=== PATIENT | female | born 1955 | race Caucasian/White ===

== ENCOUNTER 2022-01-02 08:30 | Outpatient (RCR) | payer BC, SELFPAY | END 2022-10-23 23:59 | disposition home or self-care (01) | PROVIDERS: PCP Family Medicine; Visit Provider Family Medicine | DX: M65.30 Trigger finger, unspecified finger (principal); Z51.89 Encounter for other specified aftercare | CPT/HCPCS: 97016; 97033; 97035; 97110; 97140; 97165; X5282 ==

== ENCOUNTER 2022-04-28 09:46 | Outpatient (CLI) | payer BC, SELFPAY ==
--- NOTE | 2022-04-28 10:15 | CRLHL7_ITS ---
For Patients: As a result of the Cures Act, medical imaging exams and procedure reports are released immediately into your electronic medical record. You may view this report before your referring provider. If you have questions, please contact your health care provider. BILATERAL SCREENING MAMMOGRAM WITH COMPUTER-AIDED DETECTION AND TOMOSYNTHESIS TECHNIQUE: CC and MLO views were obtained. These mammographic images have been obtained using full-field digital technique. These mammographic images were interpreted with the benefit of computer-aided detection. Breast Tomosynthesis was used in this interpretation. COMPARISON FILM: 03/25/21, 01/06/20, 11/10/18. FINDINGS: There are scattered areas of fibroglandular density IMPRESSION: There is no radiographic evidence for malignancy. ASSESSMENT: BI-RADS Category 1: Negative RECOMMENDATION: Routine screening mammogram in 1 year. A lay language report of this examination will be provided to the patient. SANTOS VILLEGAS M.D. Diagnostic/Nuclear Medicine Radiologist [email or web address] [email or web address]:alis Transcribed: 3:13 p.mNereida snell/Dictated by: Santos Villegas MD @ 04/28/2022 10:57:00 AM (Electronically Signed)
== END 2022-04-28 09:47 | disposition home or self-care (01) ==
LOC: MAMMO 09:46
PROVIDERS: PCP Family Medicine; Visit Provider Family Medicine
DX: Z12.31 Encounter for screening mammogram for malignant neoplasm of breast (principal)
CPT/HCPCS: 77063; 77067

== ENCOUNTER 2022-06-03 09:29 | Outpatient (CLI) | payer BC, SELFPAY ==
[2022-06-03 11:50] LABS: Albumin* 4.3 g/dL (3.3-5.0); Chloride* 105 mmol/L (96-114); Potassium* 4.8 mmol/L (3.6-5.1); Sodium* 140 mmol/L (135-149)
[2022-06-03 11:52] LABS: Cholesterol* 215 mg/dL (90-199)
[2022-06-03 11:53] LABS: Alanine Aminotransferase* 25 U/L (4-35); Alkaline Phosphatase* 76 U/L (40-150); Aspartate Amino Transferase* 23 U/L (12-35); Bilirubin Total* 0.5 mg/dL (0.1-1.5); Blood Urea Nitrogen* 15 mg/dL (7-30); Calcium* 9.2 mg/dL (8.4-10.6); Carbon Dioxide* 31 mmol/L (20-32); Creatinine* 0.6 mg/dL (0.5-1.5); Estimated Glomerular Filt Rate 100 ml/min; Glucose* 101 mg/dL (60-115); HDL Cholesterol* 78 mg/dL (>=50); LDL Cholesterol Calculated 104 mg/dL (<100); Total Protein* 6.9 g/dL (6.0-8.3); Triglycerides* 164 mg/dL (40-149)
[2022-06-05 10:33] LABS: Vitamin D 25 Hydroxy* 48 ng/mL (30-80)
== END 2022-06-03 09:30 | disposition home or self-care (01) ==
LOC: NFLDREF 09:29
PROVIDERS: PCP Family Medicine; Visit Provider Family Medicine
DX: E78.5 Hyperlipidemia, unspecified (principal); Z00.00 Encounter for general adult medical examination without abnormal findings; E55.9 Vitamin D deficiency, unspecified; E66.9 Obesity, unspecified
CPT/HCPCS: 80053; 80061; 82306

== ENCOUNTER 2023-07-20 13:34 | Outpatient (CLI) | payer BC, SELFPAY ==
--- OUTSIDE RECORDS SUMMARY | 2023-07-20 13:36 | XMS_ITS | Clinical Summary ---
Author Name Unknown Organization [employer] [facility] Address [place], [place] [address] Care Team Providers Care Acquisition Professional Name Role Phone Donna Proctor Teodora DC Unavailable [phone] Pcp, No Primary Care Provider Unavailabl e Allergies Active Allergy Reactions Criticality Noted Date Comments Codeine 11/14/2008 Pt wasn't able to walk Medications Medication Sig Dispensed Refills Start Date End Date Status multivitamin (MVI) tablet Take 1 tablet by mouth once daily. 0 11/16/2009 Active glucosamine-chondroiti n, 500-400 mg, (COSAMIN DS 500/400) 500-400 mg Cap Take 1 capsule by mouth 3 times daily. 0 11/16/2009 Active aspirin enteric coated 81 mg tablet Take 1 tablet by mouth once daily with a meal. 0 11/16/2009 Active calcium-cholecalcifero l, vitamin D, 500 mg-200 units (CALCIUM 500+D) 500 mg(1,250mg) -200 unit tablet Take 1 tablet by mouth 3 times daily with meals. 0 11/16/2009 Active Coenzyme H58-Zfljtpj E (COQ10 SG 100) 100-100 mg-unit cap Take 1 capsule by mouth once daily. 0 02/19/2012 Active omega-3 fatty acids-vitamin E (FISH OIL) 1,000 mg cap Take 1 capsule by mouth once daily. 0 02/19/2012 Active vitamin B complex (B COMPLEX-VITAMIN B12) tablet Take 1 tablet by mouth once daily. 0 02/19/2012 Active fexofenadine (LINH) 180 mg tablet Take 1 tablet by mouth once daily with a meal. 0 05/11/2014 Active simvastatin (ZOCOR) 20 mg tabletIndications:Mixe d hyperlipidemia Take 1 tablet by mouth at bedtime. 90 tablet 3 11/24/2017 Active RABEprazole (ACIPHEX) 20 mg tabletIndications:Rajni roesophageal reflux disease, esophagitis presence not specified Take 1 tablet by mouth once daily. 90 tablet 3 11/24/2017 Active venlafaxine (EFFEXOR XR) 150 mg Extended-Release capsuleIndications:Anx iety state TAKE 1 CAPSULE BY MOUTH DAILY 30 capsule 11/12/2018 Active Active Problems Problem Noted Date Diagnosed Date Mixed hyperlipidemia 02/19/2012 GERD (gastroesophageal reflux disease) 0 Overview: EGD 06/2014 mild reflux esophagitis Anxiety state, unspecified 11/14/2008 Resolved Problems Problem Noted Date Diagnosed Date Resolved Date Health maintenance examination 11/16/2009 08/01/2014 Overview: Colonscopy 08/04/2008 repeat 5 yrs Pap 07/2008 Colonoscopy 06/2014 normal repeat in 5 years Other and unspecified hyperlipidemia 11/14/2008 08/01/2014 Immunizations Name Administration Dates Next Due COVID-19 vaccine (Moderna Siddhartha ele 50mcg/0.25mL) PF, MDV 02/18/2021 COVID-19 vaccine (Pfizer-BioNTech 30mcg/0.3mL) P F, MDV 07/20/2020,06/22/2020 Influenza, IIV4 01/07/2018 Td (Age >=7 Years) 12/05/2002 Tdap 02/19/2012 Family History Medical History Relation Name Comments Good Health Daughter Cancer Father stomach Diabetes Father Heart Disease Father angioplasty no [place] Other Father COPD Cancer-breast Maternal Aunt Cancer Mother uterine/myeolop lastic leukemia Cancer-breast Mother matastatic Diabetes Mother Cancer-breast Paternal Aunt Cancer-breast Paternal Grandmother Cancer-breast Sister 1 #1 Cancer-breast Sister 2 #2 Good Health Sister 2 #2 Good Health Sister 3 #3 Good Health Son 1 Good Health Son 2 Relation Name Status Comments Daughter Father (Age 75) gastric ca ncer Maternal Aunt Mother Alive Paternal Aunt Paternal Grandmother breast cancer Sister 1 #1 Sister 2 #2 Sister 3 #3 Son 1 Son 2 Social History Tobacco Use Types Packs/Day Years Used Date Smoking Tobacco: Former Cigarettes Q uit: 04/06/2002 Smokeless Tobacco: Never Tobacco Cessation:Counseling Given: Yes Alcohol Use Standard Drinks/Week Comments Yes 3 (1 standard drink = 0.6 oz pure alcohol) occasional, a couple times/ weekend PHQ-2 Answer Date Recorded PHQ-2 Score 0 06/08/2018 Social Connections Answer Date Recorded Frequency of Communication with Friends and Fami ly Not on file 07/01/2021 Sex and Gender Information Value Date Recorded Sex Assigned at Not on file Gender Identity Not on file Sexual Orientation Not on file Obstetrics History Para Term AB IAB SAB Ectopic Multiple Livin g Live Births 3 3 3 Date Outcome GA Total Labor Labor//3rd Weight Sex Delivery Anes PTL Svetlana A1 A5 Name Cl in Para Para Para Last Filed Vital Signs Vital Sign Reading Time Taken Comments Blood Pressure 108/72 04/09/2018 7:44 AM ORACLE EBS DEVELOPER Pulse 81 04/09/2018 7:44 AM ORACLE EBS DEVELOPER Temperature 36.9 ??C (98.4 ??F) 04/09/2018 7:44 AM CS T Respiratory Rate - - Oxygen Saturation 97% 04/09/2018 7:44 AM ORACLE EBS DEVELOPER Inhaled Oxygen Concentration - - Weight 77.6 kg (171 lb) 02/17/2018 11:09 AM ORACLE EBS DEVELOPER Height 157 cm (5' 1.81) 12/31/2017 8:25 AM CDT Body Mass Index 31.47 12/31/2017 8:25 AM CDT Plan of Treatment Health Maintenance Due Date Last Done Comments Hepatitis C screening for ag e 18-79 1974 Zoster (shingles) series for age 50+ (1 of 2) 2006 Depression screening for age 12+ 09/03/2018 09/03/2017, 08/05/2016, 08/29/2015 Mammogram for age 45-75 11/10/2018 11/11/19 18, 09/02/2016, 08/29/2015, Additional history exists BMI (ht and wt on same day) for age 18+ 12/31/2018 12/31/2017, 12/30/2017, 11/24/2017, Additional history exists Colonoscopy through age 75 06/14/2019 06/13/2014, DEXA/DXA scan for age 65+ 2021 08/30/2015 Pneumococcal series for age 65+ (1 of 1 - PCV) 2021 Tetanus booster 02/18/2022 02/19/2012, 12/05/2002 Lipids for age 45-75 11/26/2022 11/26/2017, 09/02/2016, 08/29/2015, Additional history exists COVID-19 vaccine series (2022- season) 2022 02/18/2021, 07/20/2020, 06/22/2020 Influenza for age 65+ 12/06/2023 01/07/2018 Tdap Completed 02/19/2012 Procedures Procedure Name Priority Date/Time Associated Diagnosis Comments LIPID PANEL W REFLEX MEASURED LDL Routine 11/26/2017 9:00 AM CDT Mixed hyperlipidemia XR MAMMO BILAT SCREENING Routine 11/10/2017 11:27 AM CDT Visit for screening mammogram XR DXA BONE DENSITY 2 SITES AXIAL Routine 08/30/2015 10:27 AM CDT Screening for osteoporosis from Last 3 Months or Most Recently Relevant to Health Maintenance Results * (ABNORMAL) LIPID PANEL W REFLEX MEASURED LDL (11/26/2017 9:00 AM CDT) CHOLESTEROL,TOTAL 229(H) 100 - 199 mg/dL 11/26/2017 3:48 PM CDT [facility] TRIGLYCERIDES 95 <150 mg/dL 11/26/2017 3:48 PM CDT [facility] HDL CHOLESTEROL 70 >40 mg/dL 8 3:48 PM CDT [facility] NON-HDL CHOLESTEROL 159(H) <145 mg/dl 11/26/2017 3:48 PM CDT [facility] CHOL/HDL RATIO 3.27 <4.50 11/26/2017 3:48 PM CDT [facility] LDL CHOLESTEROL 140(H) <=130 mg/dL 11/26/2017 3:48 PM CDT [facility] PROVIDER ORDERED STATUS RANDOM 11/26/2017 3:48 PM CDT [facility] Blood BLOOD SPECIMEN / Unknown Venipuncture / Unknown 11/26/2017 9:00 AM CDT 11/26/2017 9:00 AM CDT Amber Hollingsworth NP CHEMISTRY [facility] [address] [place] [address], * XR MAMMO BILAT SCREENING (11/10/2017 11:27 AM CDT) Anatomical Region Laterality Modality BREASTS, Breast Left, Breast Right Bilateral Mammography Impressions 11/10/2017 12:42 PM CDT ??There is no radiographic evidence for malignancy. ??Recommend annual mammograms. A lay language report of this examination will be provided to the patient. MAMMOGRAM ASSESSMENT: ??ACR 1 Negative Narrative 11/10/2017 12:42 PM CDT XR MAMMO BILAT SCREENING [[id number]] CLINICAL HISTORY: ??This is an asymptomatic 62 y.o. patient. INDICATION FOR EXAM: Mammogram Screening. TECHNIQUE: CC & MLO views were obtained. ??This digital study was evaluated with the assistance of Computer-Aided Detection. COMPARISON FILM: Yes 09/02/16 [facility] 08/29/15 [facility] FINDINGS: ??Mammographically, the breast tissue is heterogeneously dense, which could obscure detection of small masses. There are no dominant masses, suspicious micro calcifications or areas of architectural distortion. Amber Hollingsworth NP MAMMO * (ABNORMAL) XR DXA BONE DENSITY 2 SITES AXIAL (08/30/2015 10:27 AM CDT) Anatomical Region Laterality Modality Spine, HIPS, HIPL, HIPR Other Narrative 09/07/2015 2:46 PM CDT Please see scanned document for results of this study. Amber Hollingsworth NP DEXA from Last 3 Months or Most Recently Relevant to Health Maintenance Care Teams Acquisition Professional Relationship Specialty Start Date End Date Pcp, No . PCP - General 03/12/18 Donna Proctor DC [address] [place] [id number] Chiropractor 05/11/14
--- NOTE | 2023-07-20 13:40 | MM_ITS ---
Patient: AC HERNANDEZ Facility:?[facility] Patient ID:?[id number] Site Patient ID:?[id number]. Site :?[id number] Study:?XRay-Breast Bilateral 3D W/CAD-07/20/2023 2:03:31 PM Ordering Physician:Gigi Final Report: BILATERAL SCREENING MAMMOGRAM WITH COMPUTER-AIDED DETECTION AND TOMOSYNTHESIS TECHNIQUE: CC and MLO views were obtained. These mammographic images have been obtained using full-field digital technique. These mammographic images were interpreted with the benefit of computer-aided detection. Breast Tomosynthesis was used in this interpretation. COMPARISON FILM: 04/28/22, 03/25/21, 01/06/20. FINDINGS: There are scattered areas of fibroglandular density. IMPRESSION: There is no radiographic evidence for malignancy. ASSESSMENT: BI-RADS Category 1: Negative RECOMMENDATION: Routine screening mammogram in 1 year. A lay language report of this examination will be provided to the patient. Gabriel Jensen M.D. Diagnostic Radiologist [email or web address] DSM/sp R& Transcribed: 2:15 p.m. SP/Dictated by: Gabriel Jensen MD @ 07/21/2023 8:52:00 AM Signed by:?Gabriel Jensen MD @07/21/2023 2:34:21 PM (Electronic Signature)
== END 2023-07-20 13:35 | disposition home or self-care (01) ==
LOC: MAMMO 13:34
PROVIDERS: PCP Family Medicine; Visit Provider Family Medicine
DX: Z12.31 Encounter for screening mammogram for malignant neoplasm of breast (principal)
CPT/HCPCS: 77063; 77067; 80053; 80061; 82306

== ENCOUNTER 2024-01-19 11:20 | Outpatient (CLI) | payer MEDICARE, SELFPAY ==
--- OUTSIDE RECORDS SUMMARY | 2024-01-19 11:26 | XMS_ITS | Clinical Summary ---
Author Organization [employer] [facility] Address [place], [place] [address] Care Team Providers Care Reiki Practitioner Name Role Phone Donna Proctor Teodora DC Unavailable [phone] Pcp, No Primary Care Provider Unavailabl [...] daily with meals. 0 11/16/2009 Active Coenzyme A25-Sqjtoqr E (COQ10 SG 100) 100-100 mg-unit cap [...] hyperlipidemia 02/19/2012 GERD (gastroesophageal reflux disease) 0 Overview (06/15/2014): EGD 06/2014 mild reflux esophagitis Anxiety state, unspecified 11/14/2008 Resolved Problems Problem Noted Date Diagnosed Date Resolved Date Health maintenance examination 11/16/2009 08/01/2014 Overview (06/15/2014): Colonscopy 08/04/2008 repeat 5 yrs Pap 07/2008 [...] Diabetes Father Heart Disease Father angioplasty no [place] Other Father COPD Cancer-breast Maternal Aunt Cancer [...] 3 3 Date Outcome GA Total Labor Labor/2nd/3rd Weight Sex Type Anes PTL Svetlana A1 A5 Name Clin Para Para Para Last Filed Vital Signs Vital Sign Reading Time Taken Comments Blood Pressure 108/72 04/09/2018 7:44 AM LUBRICATING SPECIALIST Pulse 81 04/09/2018 7:44 AM LUBRICATING SPECIALIST Temperature 36.9 ??C (98.4 ??F) 04/09/2018 7:44 AM CS T Respiratory Rate - - Oxygen Saturation 97% 04/09/2018 7:44 AM LUBRICATING SPECIALIST Inhaled Oxygen Concentration - - Weight 77.6 kg (171 lb) 02/17/2018 11:09 AM LUBRICATING SPECIALIST Height 157 cm (5' 1.81) 12/31/2017 8:25 [...] 08/29/2015, Additional history exists COVID-19 vaccine series ( season) 2023 02/18/2021, 07/20/2020, 06/22/2020 Influenza for age 65+ [...] - 199 mg/dL 11/26/2017 3:48 PM CDT [facility] TRIGLYCERIDES 95 <150 mg/dL 11/26/2017 3:48 PM CDT [facility] HDL CHOLESTEROL 70 >40 mg/dL 8 3:48 PM CDT [facility] NON-HDL CHOLESTEROL 159(H) <145 mg/dl 11/26/2017 3:48 PM CDT [facility] CHOL/HDL RATIO 3.27 <4.50 11/26/2017 3:48 PM CDT [facility] LDL CHOLESTEROL 140(H) <=130 mg/dL 11/26/2017 3:48 PM CDT [facility] PROVIDER ORDERED STATUS RANDOM 11/26/2017 3:48 PM CDT [facility] Blood BLOOD SPECIMEN / Unknown Venipuncture / Unknown 11/26/2017 9:00 AM CDT 11/26/2017 9:00 AM CDT Amber Hollingsworth NP CHEMISTRY [facility] [address] [place] [address], [place] * XR MAMMO BILAT SCREENING (11/10/2017 11:27 AM CDT) Anatomical Region Laterality Modality BREASTS, Breast Left, Breast Right Bilateral Mammography Impressions 11/10/2017 12:42 PM CDT ??There is no radiographic evidence for malignancy. ??Recommend annual mammograms. A lay language report of this examination will be provided to the patient. MAMMOGRAM ASSESSMENT: ??ACR 1 Negative Narrative 11/10/2017 12:42 PM CDT XR MAMMO BILAT SCREENING [[id number]] CLINICAL HISTORY: ??This is an asymptomatic 62 y.o. patient. INDICATION FOR EXAM: Mammogram Screening. TECHNIQUE: CC & MLO views were obtained. ??This digital study was evaluated with the assistance of Computer-Aided Detection. COMPARISON FILM: Yes 09/02/[address] [facility] 08/29/[address] [facility] FINDINGS: ??Mammographically, the breast tissue is heterogeneously [...] Recently Relevant to Health Maintenance Care Teams Reiki Practitioner Relationship Specialty Start Date End Date Pcp, No . PCP - General 03/12/18 Donna Proctor DC [address] [place] [id number] Chiropractor 05/11/14
--- NOTE | 2024-01-19 11:40 | CRLHL7_ITS ---
For Patients: As a result of the Cures Act, medical imaging exams and procedure reports are released immediately into your electronic medical record. You may view this report before your referring provider. If you have questions, please contact your health care provider. Indication: Post right knee arthroplasty Technique: Three views of the right knee Comparison: Same day standing frontal radiographs of bilateral knees Findings/impression : Postsurgical changes of right knee arthroplasty. Hardware is intact and without adjacent lucency. No displaced fracture or dislocation. No soft tissue radiopaque foreign bodies. Dictated by Tino Reardon MD @ 01/21/2024 1:57:19 PM (Electronically Signed)
== END 2024-01-19 11:21 | disposition home or self-care (01) ==
PROVIDERS: PCP Family Medicine; Referring Provider Family Medicine; Visit Provider Family Medicine
DX: Z96.651 Presence of right artificial knee joint (principal)
CPT/HCPCS: 73562; 73565

== ENCOUNTER 2024-07-22 10:25 | Outpatient (CLI) | payer MEDICARE, SELFPAY | END 2024-07-22 10:26 | disposition home or self-care (01) | LOC: NFLDREF 07-26 17:57 | PROVIDERS: PCP Family Medicine; Referring Provider Family Medicine; Visit Provider Family Medicine | DX: E78.5 Hyperlipidemia, unspecified (principal); E55.9 Vitamin D deficiency, unspecified; M81.0 Age-related osteoporosis without current pathological fracture; M85.851 Other specified disorders of bone density and structure, right thigh; M85.852 Other specified disorders of bone density and structure, left thigh | CPT/HCPCS: 80053; 80061; 82306 ==

== ENCOUNTER 2024-09-20 14:21 | Outpatient (CLI) | payer MEDICARE, SELFPAY ==
--- NOTE | 2024-09-20 14:40 | CRLHL7_ITS ---
For Patients: As a result of the Century Cures Act, medical imaging exams and procedure reports are released immediately into your electronic medical record. You may view this report before your referring provider. If you have questions, please contact your health care provider. INDICATION: BILATERAL SCREENING MAMMOGRAM, ASYMPTOMATIC 69 Y/O FEMALE COMPARISON: 07/20/2023, 04/28/2022, 03/25/2021 TECHNIQUE: Digital mammogram in CC and MLO projections including computer-aided detection (CAD) and tomosynthesis. BREAST COMPOSITION: There are scattered areas of fibroglandular density. FINDINGS: No suspicious findings. ASSESSMENT: BI-RADS 2 Benign RECOMMENDATION: Annual screening mammogram. A lay language report of this examination will be provided to the patient. Dictated by: Gabriel Jensen MD @ 09/21/2024 10:11:13 (Electronically Signed)
== END 2024-09-20 14:22 | disposition home or self-care (01) ==
LOC: MAMMO 14:22
PROVIDERS: PCP Family Medicine; Visit Provider Family Medicine
DX: Z12.31 Encounter for screening mammogram for malignant neoplasm of breast (principal)
CPT/HCPCS: 77063; 77067